=== PATIENT | male | born 1995 | race Two or more races ===

== ENCOUNTER 2018-08-01 20:06 | Emergency (ER) | payer MEDICAID ==
[~2018-08-01] VITALS: Ht 188 cm; Wt 77.1 kg
[~2018-08-01 20:06] MED LIST: NORPTMEDS CO
[2018-08-01 21:37] VITALS: BP 110/72
== END 2018-08-01 22:48 | disposition home or self-care (01) ==
LOC: ER 20:06
DX: R21 Rash and other nonspecific skin eruption (principal); B34.9 Viral infection, unspecified; F17.210 Nicotine dependence, cigarettes, uncomplicated; F12.10 Cannabis abuse, uncomplicated

== ENCOUNTER 2019-05-04 17:16 | Emergency (ER) | payer SELFPAY ==
[~2019-05-04] VITALS: Ht 188 cm; Wt 79.4 kg
[2019-05-04 17:35] VITALS: BP 114/59
[2019-05-04] MEDS ORDERED: HYDROcodone-ACET 5/325MG TAB PO ONE (20:30)
== END 2019-05-04 21:26 | disposition home or self-care (01) ==
LOC: ER 17:30
DX: S02.602A Fracture of unspecified part of body of left mandible, initial encounter for closed fracture (principal); S02.652A Fracture of angle of left mandible, initial encounter for closed fracture; F17.210 Nicotine dependence, cigarettes, uncomplicated; F12.10 Cannabis abuse, uncomplicated; Y08.89XA Assault by other specified means, initial encounter; Y93.89 Activity, other specified; Y99.8 Other external cause status; Y92.89 Other specified places as the place of occurrence of the external cause
CPT/HCPCS: 70450; 70486

== ENCOUNTER 2019-05-12 21:28 | Emergency (ER) | payer MEDICAID | END 2019-05-12 22:38 | disposition left against medical advice (07) | LOC: ER 21:34 | DX: R68.84 Jaw pain (principal); Z53.21 Procedure and treatment not carried out due to patient leaving prior to being seen by health care provider ==

== ENCOUNTER 2019-05-13 09:47 | Emergency (ER) | payer MEDICAID ==
[~2019-05-13] VITALS: Ht 188 cm; Wt 79.4 kg
[2019-05-13 12:34] VITALS: BP 126/71
== END 2019-05-13 17:05 | disposition home or self-care (01) ==
LOC: ER 09:49
DX: S02.92XD Unspecified fracture of facial bones, subsequent encounter for fracture with routine healing (principal); F17.210 Nicotine dependence, cigarettes, uncomplicated; F12.10 Cannabis abuse, uncomplicated; Z76.0 Encounter for issue of repeat prescription; X58.XXXD Exposure to other specified factors, subsequent encounter

== ENCOUNTER 2019-06-06 13:11 | Emergency (ER) | payer MEDICAID ==
[~2019-06-06] VITALS: Ht 190.5 cm; Wt 81.6 kg
[2019-06-06 14:03] VITALS: BP 142/95
== END 2019-06-06 14:57 | disposition home or self-care (01) ==
LOC: ER 13:15
DX: R68.84 Jaw pain (principal); F17.210 Nicotine dependence, cigarettes, uncomplicated; F12.10 Cannabis abuse, uncomplicated; Z76.0 Encounter for issue of repeat prescription

== ENCOUNTER 2020-03-08 17:08 | Emergency (ER) | payer MEDICAID | END 2020-03-08 18:19 | disposition left against medical advice (07) | LOC: ER 17:08 | DX: F32.9 Major depressive disorder, single episode, unspecified (principal); R45.851 Suicidal ideations ==

== ENCOUNTER 2022-11-02 23:41 | Inpatient (IN) | payer MEDICAID ==
[~2022-11-02] VITALS: Ht 182.9 cm; Wt 90.0 kg
[2022-11-03] MEDS ORDERED: NALOXONE HCL 1MG/ML 2ML SYRINGE IV ONE ×2 (00:30→01:45)
[2022-11-03] MEDS ORDERED: NALOXONE HCL 1MG/ML 2ML SYRINGE ONE (00:31)
[2022-11-03 00:48] LABS: Urine Bacteria MANY /hpf (None Seen); Urine Blood Negative /uL (Negative); Urine Hyaline Cast MOD /lpf (0 - 2); Urine Mucus FEW (None Seen); Urine Specific Gravity 1.014 (1.001-1.035); Urine WBC 3 /hpf (0 - 3)
[2022-11-03 00:48] LABS: Basophils # (auto) 0 10 ^3/uL (0-0.2); Basophils % (auto) 0.2 % (0.0-2.0); Eosinophils # (auto) 0.1 10 ^3/uL (0-0.8); Eosinophils % (auto) 0.4 % (0.0-7.0); Hematocrit 37.8 % (41.0-53.0); Hemoglobin 12.7 g/dL (13.5-17.5); Lymphocytes # (auto) 0.9 10 ^3/uL (0.4-5.4); Lymphocytes % (auto) 5.8 % (10.0-50.0); Mean Corpuscular Hemoglobin 29.5 pg (28.0-32.0); Mean Corpuscular Hgb Conc. 33.6 g/dL (32.0-36.0); Mean Corpuscular Volume 87.8 fL (80.0-100.0); Monocytes # (auto) 0.6 10 ^3/uL (0-1.3); Monocytes % (auto) 3.6 % (0.0-12.0); Neutrophils # (auto) 14.7 10 ^3/uL (1.6-8.6); Red Cell Distribution Width 13.5 % (11.8-14.3); White Blood Cell 16.4 10^3/uL (4.4-10.8)
[2022-11-03 01:02] LABS: Amphetamine Screen, Urine NEGATIVE (NEGATIVE); Barbiturate Scree,Urine NEGATIVE (NEGATIVE); Benzodiazephine Screen, Urine NEGATIVE (NEGATIVE); Cocaine Screen, Urine NEGATIVE (NEGATIVE)
[2022-11-03 01:03] LABS: Albumin 3.3 g/dL (3.4-5.0); BUN/Creatinine Ratio 14.9; Calcium 8.7 mg/dL (8.5-10.1); Potassium 3.9 mmol/L (3.5-5.1)
[2022-11-03 01:05] LABS: Acetaminophen < 2.0 ug/mL (10-30); Salicylate < 1.7 mg/dL (2.8-20.0)
[2022-11-03 01:06] LABS: Bilirubin, Total 0.2 mg/dL (0.2-1.0); Total Protein 5.9 g/dL (6.4-8.2)
[2022-11-03 01:10] LABS: Cannabinoid Screen, Urine POSITIVE (NEGATIVE); Opiate Scree,Urine NEGATIVE (NEGATIVE); Phencyclidine Screen, Urine NEGATIVE (NEGATIVE)
[2022-11-03] MEDS ORDERED: IBUPROFEN 400 MG TAB PO PRN (04:45)
[2022-11-03] MEDS ORDERED: DOCUSATE SOD 100 MG CAP PO PRN (04:45)
[2022-11-03] MEDS ORDERED: ONDANSETRON HCL 4 MG/2 ML VIAL IV PRN (04:45)
[2022-11-03 05:50] LABS: Basophils # (auto) 0 10 ^3/uL (0-0.2); Basophils % (auto) 0.2 % (0.0-2.0); Eosinophils # (auto) 0 10 ^3/uL (0-0.8); Eosinophils % (auto) 0.1 % (0.0-7.0); Hemoglobin 12.5 g/dL (13.5-17.5); Lymphocytes % (auto) 9.2 % (10.0-50.0); Mean Corpuscular Hemoglobin 30.5 pg (28.0-32.0); Mean Corpuscular Hgb Conc. 34.7 g/dL (32.0-36.0); Mean Corpuscular Volume 87.9 fL (80.0-100.0); Monocytes # (auto) 0.4 10 ^3/uL (0-1.3); Monocytes % (auto) 4.1 % (0.0-12.0); Neutrophils # (auto) 9.2 10 ^3/uL (1.6-8.6); Neutrophils % (auto) 86.4 % (37.0-80.0); Red Cell Distribution Width 13.3 % (11.8-14.3); White Blood Cell 10.6 10^3/uL (4.4-10.8)
[2022-11-03] MEDS ORDERED: NITROGLYCERIN 0.4 MG SL TAB SL PRN (06:00)
[2022-11-03] MEDS ORDERED: MORPHINE SULFATE INJ 2 MG/ml SYRG IV PRN (06:00)
[2022-11-03] MEDS: SODIUM CHLOR 0.9% PF (SALINE LOCK) 10ML VIAL/SYR IV SCH ×2 (06:02→11:52)
[2022-11-03 06:03] LABS: Potassium 3.7 mmol/L (3.5-5.1)
[2022-11-03 06:11] LABS: Albumin 3.4 g/dL (3.4-5.0); Bilirubin, Total 0.4 mg/dL (0.2-1.0); Calcium 8.2 mg/dL (8.5-10.1); Total Protein 6.1 g/dL (6.4-8.2)
[2022-11-03] MEDS ORDERED: LORazepam 2MG/ML-1ML VIAL IV PRN (06:15)
[2022-11-03] MEDS ORDERED: cefTRIAXone 1GM/50ML D5W 50 ML IV SCH (06:23)
[2022-11-03 09:53] VITALS: BP 121/71
== END 2022-11-03 12:48 | disposition home or self-care (01) | DRG 812 ==
LOC: ER 23:41 → EDBD 23:41 → TELE 11-03 05:59
PROVIDERS: ADMIT Nurse Practitioner Family; ATTEND Nurse Practitioner Family
DX: T40.411A Poisoning by fentanyl or fentanyl analogs, accidental (unintentional), initial encounter (principal); D72.829 Elevated white blood cell count, unspecified; F41.9 Anxiety disorder, unspecified; Z20.822 Contact with and (suspected) exposure to COVID-19; F17.210 Nicotine dependence, cigarettes, uncomplicated; R79.89 Other specified abnormal findings of blood chemistry; Y92.89 Other specified places as the place of occurrence of the external cause
CPT/HCPCS: 36415; 80053; 80307; 80329; 81001; 85025; 87040; 87426; 96374; 96376; 99291; G0378; J0696

== ENCOUNTER 2024-08-07 21:04 | Emergency (ER) | payer MEDICAID ==
[~2024-08-07] VITALS: Ht 182.9 cm; Wt 81.0 kg
--- NOTE | 2024-08-07 21:19 | ED.PDOC ---
Altered Mental Status HPI Comments 29-year-old male who came to ER via EMS for alcohol intoxication/altered level of consciousness. Per EMS, patient was seen laying in the middle of the road, beside his car. Patient appears to be intoxicated with alcohol. Noted hematoma/abrasion on his right temporal area. No drug paraphernalia seen in the vicinity. No further information that could be at this time of care. 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 Allergies: Coded Allergies: NO KNOWN ALLERGIES (Unverified , 01/05/14) Home Meds Reported Medications No Reported Medication (NO REPORTED MEDICATION) Ea, 0 CO UNK, EA PATIENT HAS NO REPORTED MEDICATIONS 01/05/14 Information Source: Emergency Med Personnel Mode of Arrival: EMS Severity: Unable to Care for Self, Unresponsive Timing: Minutes Duration: Since onset Prehospital treatment: None Quality: Decreased Alertness, Change in Behavior, Confusion Recent: Trauma Past Medical History PAST MEDICAL HISTORY: Pt Confused Surgical History: Pt Confused Family History Family History: Pt Confused Social History Smoker: Pt Confused Alcohol: Pt Confused Drugs: Pt Confused Lives In: Pt Confused Unable to Obtain due to: Other (Intoxicated with alcohol) Physical Exam General Appearance: No Apparent Distress, Normal HEENT: Normal ENT Inspection, Pharynx Normal, TMs Normal, Other (Hematoma, abrasion right temporal area) Neck: Full Range of Motion, Non-Tender, Normal, Normal Inspection Respiratory: Chest Non-Tender, Lungs Clear, No Accessory Muscle Use, No Respiratory Distress, Normal Breath Sounds Cardiovascular: No Edema, No JVD, No Murmur, No Gallop, Normal Peripheral Pulses, Regular Rate/Rhythm Breast Exam: Deferred Gastrointestinal: No Organomegaly, Non Tender, No Pulsatile Mass, Normal Bowel Sounds, Soft Genitalia: Deferred Pelvic: Deferred Rectal: Deferred Extremities: No calf tenderness, Normal capillary refill, Normal inspection, Normal range of motion, Non-tender, No pedal edema Musculoskeletal : Apperance: Normal Neurologic: Alert, tree trimmer helper II-XII nml as Tested, No Motor Deficits, Normal Affect, Normal Mood, No Sensory Deficits Cerebellar Function: Normal Reflexes: Normal Skin: Dry, Normal Color, Warm Lymphatic: No Adenopathy Was a procedure done? Was a procedure done?: No Differential Diagnosis (ALOC) Differential Diagnosis: Closed Head Injury, Drug Overdose, ETOH Intoxication X-Ray, Labs, Meds, VS Vital Signs Date Time Temp Pulse Resp B/P (MAP) Pulse Ox O2 Delivery O2 Flow Rate FiO2 08/08/24 03:30 77 15 103/52 (69) 96 08/08/24 01:30 85 17 124/76 (92) 98 08/08/24 01:10 Nasal Cannula* 3 32 08/08/24 00:00 88 08/07/24 23:30 88 16 116/57 (76) 98 08/07/24 21:06 98.1 80 12 150/90 (110) 100 Lab Test 08/07/24 21:16 Range/Units White Blood Count 14.7 H 4.4-10.8 10^3/uL Red Blood Count 5.43 4.5-5.90 10^6/uL Hemoglobin 17.3 13.5-17.5 g/dL Hematocrit 49.1 41.0-53.0 % Mean Corpuscular Volume 90.4 80.0-100.0 fL Mean Corpuscular Hemoglobin 31.9 28.0-32.0 pg Mean Corpuscular Hemoglobin Concent 35.3 32.0-36.0 g/dL Red Cell Distribution Width 14.3 11.8-14.3 % Platelet Count 482 H 140-450 10^3/uL Mean Platelet Volume 6.7 L 6.9-10.8 fL Neutrophils (%) (Auto) 74.0 37.0-80.0 % Lymphocytes (%) (Auto) 15.6 10.0-50.0 % Monocytes (%) (Auto) 9.7 0.0-12.0 % Eosinophils (%) (Auto) 0.5 0.0-7.0 % Basophils (%) (Auto) 0.2 0.0-2.0 % Neutrophils # (Auto) 10.9 H 1.6-8.6 10 ^3/uL Lymphocytes # (Auto) 2.3 0.4-5.4 10 ^3/uL Monocytes # (Auto) 1.4 H 0-1.3 10 ^3/uL Eosinophils # (Auto) 0.1 0-0.8 10 ^3/uL Basophils # (Auto) 0 0-0.2 10 ^3/uL Nucleated Red Blood Cells 0.0 % Sodium Level 145 136-145 mmol/L Potassium Level 3.5 3.5-5.1 mmol/L Chloride Level 110 H 98-107 mmol/L Carbon Dioxide Level 24 20-31 mmol/L Anion Gap 11 5-15 Blood Urea Nitrogen < 5 L 9-23 mg/dL Creatinine 0.65 L 0.700-1.30 mg/dL Glomerular Filtration Rate Calc 132 >90 mL/min BUN/Creatinine Ratio 7.7 L 10.0-20.0 Serum Glucose 87 74-106 mg/dL Calcium Level 9.7 8.7-10.4 mg/dL Troponin I High Sensitivity 3 L </=54 ng/L Plasma/Serum Blood Alcohol 404.7 *H <10 mg/dL Current Medications Medications (Trade) Dose Ordered Sig/Oneyda Route Start Time Stop Time Status Last Admin Midazolam HCl (Versed Injection) 10 mg ONCE ONCE IM 08/07/24 22:00 08/07/24 22:01 DC 08/07/24 22:29 Procedure: CT HEAD WITHOUT CONTRAST Findings: Normal brain volume and formation. Mild chronic small vessel ischemic changes. No hemorrhages, masses, mass effect, midline shift, herniation or cytotoxic edema following a large vascular territory. No intra-axial or extra-axial fluid collections. No evidence of hydrocephalus. The basal cisterns are patent. The pituitary gland, sella and parasellar regions are unremarkable. The cerebellar tonsils are in normal position. The cerebellum is unremarkable. The orbits and globes are unremarkable. The paranasal sinuses and mastoids are clear. There are no worrisome calvarial lesions. Mild right lateral orbital soft tissue edema with adjacent wound. Impression: No evidence of acute intracranial abnormality. Mild right lateral orbital soft tissue edema with adjacent wound. XY CHEST PORTABLE, FINDINGS: Lines and tubes: None Cardiomediastinal silhouette: normal Pulmonary vasculature: normal Lung expansion: normal Lung airspace: normal Lung interstitium: normal Pleura: normal Pneumothorax: no Bones: Unremarkable Other: no IMPRESSION: No acute intrathoracic abnormality. The previously visualized artifact on the left upper chest is not seen on this exam. No pneumothorax is seen. Time of 1ST Reevaluation: 21:16 Reevaluation 1ST: Unchanged Patient Education/Counseling: Other (Intoxicated with alcohol), Pt Unresponsive Family Education/Counseling: No Family Present Departure 1 Departure Time of Disposition: 04:21 (Patient presenting with the acute alcohol intoxication. Patient's saline we will come pick him up.) Impression: Primary Impression: Alcohol intoxication Qualified Codes: F10.921 - Alcohol use, unspecified with intoxication delirium Disposition: HOME / SELF CARE / HOMELESS Condition: Stable Additional Instructions: You were intoxicated. It is important to only drink in moderation. If you need help quitting you can call (HELP). If your symptoms worsen or you have any other concerns then please return to the ER. Discharged With: Spouse Critical Care Note Critical Care Time?: No Stability Stability form required: No Heart Score Heart Score: Heart Score Response (Comments) Value History N/A 0 EKG N/A 0 Age N/A 0 Risk Factors N/A 0 Troponin N/A 0 Total 0 I personally scribed for WILMA FIERRO MD ([facility]) on 08/07/24 at 21:19. Electronically submitted by Dom Manzano ([facility]). I personally scribed for WILMA FIERRO MD ([facility]) on 08/08/24 at 03:16. Electronically submitted by Dom Manzano ([facility]). WILMA FIERRO MD Aug 07, 2024 21:19
[2024-08-07 21:36] LABS: Basophils # (auto) 0 10 ^3/uL (0-0.2); Basophils % (auto) 0.2 % (0.0-2.0); Eosinophils # (auto) 0.1 10 ^3/uL (0-0.8); Mean Corpuscular Hemoglobin 31.9 pg (28.0-32.0); Monocytes # (auto) 1.4 10 ^3/uL (0-1.3)
[2024-08-07 21:38] LABS: Eosinophils % (auto) 0.5 % (0.0-7.0); Hematocrit 49.1 % (41.0-53.0); Hemoglobin 17.3 g/dL (13.5-17.5); Lymphocytes # (auto) 2.3 10 ^3/uL (0.4-5.4); Lymphocytes % (auto) 15.6 % (10.0-50.0); Mean Corpuscular Hgb Conc. 35.3 g/dL (32.0-36.0); Mean Corpuscular Volume 90.4 fL (80.0-100.0); Monocytes % (auto) 9.7 % (0.0-12.0); Neutrophils # (auto) 10.9 10 ^3/uL (1.6-8.6); Platelet Count (auto) 482 10^3/uL (140-450); Red Blood Cells 5.43 10^6/uL (4.5-5.90); Red Cell Distribution Width 14.3 % (11.8-14.3); White Blood Cell 14.7 10^3/uL (4.4-10.8)
[2024-08-07 21:43] LABS: Chloride 110 mmol/L (98-107); Potassium 3.5 mmol/L (3.5-5.1); Sodium 145 mmol/L (136-145)
[2024-08-07 21:44] LABS: Anion Gap 11 (5-15); Calcium 9.7 mg/dL (8.7-10.4); Carbon Dioxide 24 mmol/L (20-31)
[2024-08-07 21:49] LABS: Glucose 87 mg/dL (74-106)
--- NOTE | 2024-08-07 21:54 | DVH ---
XY CHEST PORTABLE, HISTORY: ams COMPARISON: None None TECHNICAL DATA: 1 view of the chest was obtained. FINDINGS: Lines and tubes: None Cardiomediastinal silhouette: normal Pulmonary vasculature: normal Lung expansion: normal Lung airspace: normal Lung interstitium: normal Pleura: normal Pneumothorax: possible Bones: Unremarkable Other: no IMPRESSION: Questionable small left apical pneumothorax vs artifact. Consider repeat chest x ray or CT chest for further evaluation. Critical Result: possible left ptx Findings discussed with Jihan who will relay findings at 08/07/2024 09:47 PM and acknowledged receip t and understanding of the findings.
--- NOTE | 2024-08-07 21:58 | DVH ---
Procedure: CT HEAD WITHOUT CONTRAST Study Date and Requested Time: 08/07/2024 09:24 PM History: ams Comparison: None Dose: CTDI: 62.4 mGy DLP: 1234.18 mGycm Technique: Multiplanar images obtained through the brain without intravenous contrast. Findings: Normal brain volume and formation. Mild chronic small vessel ischemic changes. No hemorrhages, masses, mass effect, midline shift, herniation or cytotoxic edema following a large v ascular territory. No intra-axial or extra-axial fluid collections. No evidence of hydrocephalus. The basal cisterns are patent. The pituitary gland, sella and parasellar regions are unremarkable. The cerebellar tonsils are in nor mal position. The cerebellum is unremarkable. The orbits and globes are unremarkable. The paranasal sinuses and mastoids are clear. There are no wo rrisome calvarial lesions. Mild right lateral orbital soft tissue edema with adjacent wound. Impression: No evidence of acute intracranial abnormality. Mild right lateral orbital soft tissue edema with adjacent wound.
[2024-08-07 22:01] LABS: BUN/Creatinine Ratio 7.7 (10.0-20.0); Blood Urea Nitrogen < 5 mg/dL (9-23)
[2024-08-07 22:03] LABS: Blood Alcohol 404.7 mg/dL (<10)
[2024-08-07] MEDS: MIDAZOLAM HCL 5 MG/ML-1ML VIAL IM ONE (22:29)
--- NOTE | 2024-08-08 00:18 | DVH ---
XY CHEST PORTABLE, HISTORY: RE-EVALUATE XRAY FINDINGS COMPARISON: XY CHEST PORTABLE on DOS: 08/07/24 XY CHEST PORTABLE on DOS: 08/07/24 TECHNICAL DATA: 1 view of the chest was obtained. FINDINGS: Lines and tubes: None Cardiomediastinal silhouette: normal Pulmonary vasculature: normal Lung expansion: normal Lung airspace: normal Lung interstitium: normal Pleura: normal Pneumothorax: no Bones: Unremarkable Other: no IMPRESSION: No acute intrathoracic abnormality. The previously visualized artifact on the left upper chest is not seen on this exam. No pneumothorax is seen.
[2024-08-08 04:00] VITALS: BP 105/59; PULSE 75; RESP 16; O2SAT 97
== END 2024-08-08 04:46 | disposition home or self-care (01) ==
LOC: ER 21:04 → EDBD 21:04 → ER 08-08 04:46
DX: S00.83XA Contusion of other part of head, initial encounter (principal); F10.129 Alcohol abuse with intoxication, unspecified; X58.XXXA Exposure to other specified factors, initial encounter; Y93.89 Activity, other specified; Y92.89 Other specified places as the place of occurrence of the external cause; Y99.8 Other external cause status; Y90.0 Blood alcohol level of less than 20 mg/100 ml
CPT/HCPCS: 36415; 70450; 71045; 80048; 80320; 84484; 85025; 96372; 99285; J2250